=== PATIENT | male | born 1965 | race African-American/Black ===

== ENCOUNTER 2019-03-21 09:15 | Emergency (ER) | payer MEDICAID ==
[~2019-03-21] VITALS: Ht 172.7 cm; Wt 68.0 kg
[2019-03-21] MEDS ORDERED: SODIUM CHLORIDE 0.9% 500 ML IV ONE (15:36)
[2019-03-21] MEDS ORDERED: ceFAZolin 1GM/50ML 50 ML IV ONE (15:45)
[2019-03-21] MEDS ORDERED: MORPHINE SULF INJ 2 MG/ML SYRINGE 1ML IV ONE (15:45)
[2019-03-21 17:42] VITALS: BP 125/74
== END 2019-03-21 18:16 | disposition short-term general hospital (02) ==
LOC: EDBD 09:15 → ER 09:15
DX: S02.92XA Unspecified fracture of facial bones, initial encounter for closed fracture (principal); Y08.89XA Assault by other specified means, initial encounter; Y93.89 Activity, other specified; Y99.8 Other external cause status; Y92.89 Other specified places as the place of occurrence of the external cause
CPT/HCPCS: 70450; 70486; 94761; 96365; 96375; 99285; J0690; J2270

== ENCOUNTER 2020-10-02 17:17 | Emergency (ER) | payer MEDICAID ==
[~2020-10-02] VITALS: Ht 165.1 cm; Wt 74.8 kg
[2020-10-02 20:39] LABS: Basophils # (auto) 0 10 ^3/uL (0-0.2); Eosinophils # (auto) 0 10 ^3/uL (0-0.8)
[2020-10-02 20:41] LABS: Basophils % (auto) 0.3 % (0.0-2.0); Hematocrit 40.7 % (41.0-53.0); Hemoglobin 13.2 g/dL (13.5-17.5); Lymphocytes # (auto) 1.3 10 ^3/uL (0.4-5.4); Lymphocytes % (auto) 14.4 % (10.0-50.0); Mean Corpuscular Hemoglobin 26.7 pg (28.0-32.0); Mean Corpuscular Hgb Conc. 32.4 g/dL (32.0-36.0); Mean Corpuscular Volume 82.5 fL (80.0-100.0); Monocytes % (auto) 11.9 % (0.0-12.0); Neutrophils # (auto) 6.4 10 ^3/uL (1.6-8.6); Neutrophils % (auto) 73.4 % (37.0-80.0); Nucleated Red Blood Cells % 0.1 %; Platelet Count (auto) 148 10^3/uL (140-450); Red Blood Cells 4.94 10^6/uL (4.5-5.90); Red Cell Distribution Width 14.5 % (11.8-14.3); White Blood Cell 8.7 10^3/uL (4.4-10.8)
[2020-10-02 20:57] LABS: Albumin 3.9 g/dL (3.4-5.0); BUN/Creatinine Ratio 11.5; Potassium 4.5 mmol/L (3.5-5.1)
[2020-10-02 20:59] LABS: Bilirubin, Total 0.3 mg/dL (0.2-1.0)
[2020-10-02] MEDS ORDERED: PHENYTOIN IV DILANTIN 1,000 MG in SODIUM CHL 0.9% 250 ML IV ONE (21:15)
[2020-10-03 04:03] VITALS: BP 148/95
[2020-10-03] MEDS ORDERED: HYDROcodone-ACET 5/325MG TAB PO ONE (04:15)
== END 2020-10-03 04:11 | disposition home or self-care (01) ==
LOC: EDUNIT# 17:17 → EDBD 17:17 → ER 17:26
DX: G89.29 Other chronic pain (principal); G40.909 Epilepsy, unspecified, not intractable, without status epilepticus
CPT/HCPCS: 36415; 71045; 74176; 80053; 85025; 99285; J1165; J7050